=== PATIENT | male | born 1990 | race Two or more races ===

== ENCOUNTER 2019-06-16 16:28 | Emergency (ER) | payer SELFPAY ==
[~2019-06-16] VITALS: Ht 190.5 cm; Wt 136.1 kg
[2019-06-16 16:37] VITALS: BP 164/105
[2019-06-16] MEDS ORDERED: methylPREDNISolone SOD SUCC 125 MG/2 ML VL IM ONE (17:15)
== END 2019-06-16 17:46 | disposition home or self-care (01) ==
LOC: ER 16:28
DX: L30.1 Dyshidrosis [pompholyx] (principal)
CPT/HCPCS: 96372; 99283; J2930